=== PATIENT | female | born 1985 | race Caucasian/White ===

== ENCOUNTER 2018-11-30 17:08 | Emergency (ER) | payer OTHER ==
[~2018-11-30] VITALS: Ht 167.6 cm; Wt 68.8 kg
[2018-11-30 17:11] VITALS: BP 138/60; RESP 20; Ht 167.6 cm; Wt 68.8 kg
[2018-11-30] MEDS ORDERED: KETOROLAC 60 MG INJ IM STA (17:51)
[2018-11-30] MEDS ORDERED: ALBUTEROL/IPRATROPIUM (NEB) 3 ML AMP HHN STA (17:51)
[2018-11-30] MEDS ORDERED: ALBUTEROL 0.083% (NEB) 2.5 MG/3 ML AMP HHN STA (17:51)
[2018-11-30] MEDS ORDERED: DEXAMETHASONE 10 MG/ML 1 ML INJ IM ONE (18:00)
[2018-11-30] MEDS ORDERED: DIPHENHYDRAMINE 2.5 MG/ML 5ML CUP PO ONE (18:00)
[2018-11-30] MEDS ORDERED: FLUT16SP17 NASAL (19:40)
[2018-11-30] MEDS ORDERED: CETI10TA34 PO (19:40)
[2018-11-30] MEDS ORDERED: PRED20TA PO (19:40)
[2018-11-30] MEDS ORDERED: NAPR-985 PO (19:40)
[2018-11-30] MEDS ORDERED: ALBU18HF INHALATION (19:40)
[2018-11-30 19:58] VITALS: PULSE 90
--- NOTE | 2018-11-30 20:09 | ERD ---
ER Documentation Chief Complaint Chief Complaint Complains of a couh, colds and flu symptoms x 3 days HPI History of Present Illness: Patient coming in today with complaint of cold-like symptoms for 3 days. Associated symptoms includes headache, nasal congestion, itchy nose, itchy/burning eyes, throat irritation, intermittent nausea. At home pharmacological/nonpharmacological treatment for symptoms: Zyrtec taken yesterday, Claritin taken today Denies social concerns; Denies recent foreign travel ROS All systems reviewed and are negative except as per history of present illness. Medications Home Meds Active Scripts Naproxen* (Naprosyn*) 500 Mg Tablet, 500 MG PO BID PRN for PAIN AND/OR INFLAMMATION, #30 TAB Prov:FRANKY YOON NP 11/30/18 Fluticasone Propionate* (Fluticasone Propionate* Nasal) 50 Mcg/[place] - 16 Gm [place].susp, 1 SPRAY NASAL DAILY for nasal congestion, #1 BOTTLE TO EACH NOSTRIL Prov:FRANKY YOON NP 11/30/18 Prednisone* (Prednisone*) 20 Mg Tab, 40 MG PO DAILY for inflammation for 4 Days, TAB Prov:FRANKY YOON NP 11/30/18 Cetirizine Hcl* (Cetirizine Hcl*) 10 Mg Tab.chew, 10 MG PO DAILY for allergy symptoms/sore throat, #30 TAB Prov:FRANKY YOON NP 11/30/18 Albuterol Sulfate* (Ventolin HFA*) 18 Gm Hfa.aer.ad, 2 PUFF INHALATION Q4H, #1 INHALER Prov:FRANKY YOON NP 11/30/18 PMhx/Soc Medical and Surgical Hx: pt denies Medical Hx, pt denies Surgical Hx Hx Alcohol Use: No Hx Substance Use: No Hx Tobacco Use: No Smoking Status: Never smoker FmHx Family History: No diabetes, No coronary disease Physical Exam Vitals Vital Signs Date Temp Pulse Resp B/P (MAP) Pulse Ox O2 O2 Flow FiO2 Time Delivery Rate 11/30/18 97.1 90 19:58 11/30/18 89 21 96 21 18:10 11/30/18 98.0 100 20 138/60 100 17:11 (86) Physical Exam GENERAL: The patient is well-appearing, well-nourished, in no acute distress HEENT: Atraumatic. Conjunctivae are pink. Pupils equal, round, and reactive to light. There is no scleral icterus. No erythema to tympanic membranes, no bulging, no perforation. Oropharynx clear without tonsillar exudate. Erythema noted to nasal mucosa, turbinates swollen. NECK: Full range of motion. C-spine is soft and supple. There is no meningismus. There is no cervical lymphadenopathy. CHEST: Expiratory wheezing, diminished breath sounds to auscultation bilaterally. There are no rales, wheezes or rhonchi. HEART: Regular rate and rhythm. No murmurs, clicks, rubs or gallops. ABDOMEN: Soft, non tender, non distended. Normal bowel sounds EXTREMITIES: No cyanosis, or edema NEURO: Awake and alert, appropriate for age, no irritable cry Results 24 hrs Laboratory Tests Test 11/30/18 18:08 POC Beta HCG, Qualitative NEGATIVE Current Medications Medications Dose Sig/Otilio Start Time Status Last (Trade) Ordered Route PRN Stop Time Admin Dose Reason Admin Ketorolac 60 mg ONCE STAT 11/30/18 DC 11/30/18 Tromethamine IM 17:51 18:13 (Toradol) 11/30/18 17:54 7 mg ONCE ONCE 11/30/18 DC 11/30/18 Dexamethasone IM 18:00 18:13 (Decadron) 11/30/18 18:01 Albuterol/ 3 ml ONCE STAT 11/30/18 DC 11/30/18 Ipratropium HHN 17:51 18:30 (Duoneb) 11/30/18 17:54 Albuterol 2.5 mg ONCE STAT 11/30/18 DC 11/30/18 (Proventil HHN 17:51 18:31 0.083% (Neb)) 11/30/18 17:54 12.5 mg ONCE ONCE 11/30/18 DC 11/30/18 Diphenhydrami PO 18:00 18:12 ne HCl 11/30/18 18:01 (Benadryl Liquid Cup) Procedures/MDM ED course includes a thorough examination and history. Medications: Albuterol/DuoNeb for wheezing, dexamethasone for wheezing/inflammation/severe nasal congestion, Toradol for headache, diphenhydramine for allergy-like symptoms Imaging: CXR Labs: POC hCG urine, urinalysis Low suspicion for life-threatening medical emergency. Low suspicion for cardiopulmonary emergency that requires hospitalization/intermediate intervention. No signs of infection, afebrile and no systemic signs of infection. Otherwise healthy patient presenting with constellation of symptoms likely representing uncomplicated allergic rhinitis/wheezing as characterized by history, physical exam findings, radiologic findings, lab findings. Urine negative. Radiologist report stating chest x-ray is unremarkable; IMPRESSION: 1. Unremarkable chest x-ray. RPTAT: HMJB No respiratory distress, otherwise relatively well appearing and nontoxic. Reassessment done and patient reports decrease in pain as well as symptoms. Patient educated on diagnoses, prescriptions, follow-up care, return precautions. Strict return precautions given for worsening condition; questions answered discharge. Disposition for discharge with followup in 2 days with PCP/clinic. Departure Diagnosis: Primary Impression: Wheezing Additional Impression: Allergic rhinitis Allergic rhinitis trigger: unspecified Allergic rhinitis seasonality: unspecified Qualified Codes: J30.9 - Allergic rhinitis, unspecified Condition: Stable Patient Instructions: Bronchitis With Wheezing (Adult), Allergic Rhinitis Referrals: [facility] YOU HAVE RECEIVED A MEDICAL SCREENING EXAM AND THE RESULTS INDICATE THAT YOU DO NOT HAVE A CONDITION THAT REQUIRES URGENT TREATMENT IN THE EMERGENCY DEPARTMENT. FURTHER EVALUATION AND TREATMENT OF YOUR CONDITION CAN WAIT UNTIL YOU ARE SEEN IN YOUR DOCTORS OFFICE WITHIN THE NEXT 1-2 DAYS. IT IS YOUR RESPONSIBILITY TO MAKE AN APPOINTMENT FOR FOLOW-UP CARE. IF YOU HAVE A PRIMARY DOCTOR --you should call your primary doctor and schedule an appointment IF YOU DO NOT HAVE A PRIMARY DOCTOR YOU CAN CALL OUR PHYSICIAN REFERRAL HOTLINE AT IF YOU CAN NOT AFFORD TO SEE A PHYSICIAN YOU CAN CHOSE FROM THE FOLLOWING [facility] [address] [facility] [address] [facility] [address] [facility] [address] [facility] [address] [facility] [facility]. [facility]. [address] [facility]. [facility] YOU HAVE RECEIVED A MEDICAL SCREENING EXAM AND THE RESULTS INDICATE THAT YOU DO NOT HAVE A CONDITION THAT REQUIRES URGENT TREATMENT IN THE EMERGENCY DEPARTMENT. FURTHER EVALUATION AND TREATMENT OF YOUR CONDITION CAN WAIT UNTIL YOU ARE SEEN IN YOUR DOCTORS OFFICE WITHIN THE NEXT 1-2 DAYS. IT IS YOUR RESPONSIBILITY TO MAKE AN APPOINTMENT FOR FOLOW-UP CARE. IF YOU HAVE A PRIMARY DOCTOR --you should call your primary doctor and schedule and appointment IF YOU DO NOT HAVE A PRIMARY DOCTOR YOU CAN CALL OUR PHYSICIAN REFERRAL HOTLINE AT . IF YOU CAN NOT AFFORD TO SEE A PHYSICIAN YOU CAN CHOSE FROM THE FOLLOWING [facility] INSTITUTIONS: [facility] [address] [place] [address] [facility] [address] [place] [address] [facility] [address] [place] [address] Additional Instructions: Thank you very much for allowing us to participate in your care. Your health and safety is our top priority at [facility]. It is important to read all discharge instructions and education provided in your discharge packet. Call your primary care doctor TOMORROW for an appointment during the next 2-4 days and bring all the information and medications prescribed. Have prescriptions filled and follow precisely the directions on the label. Prednisone is a steroid that you willing to take for the next 4 days in the morning; this medication will help with inflammation and wheezing. Fluticasone as a nasal spray that includes a steroid; use this every morning to help with nasal congestion, may use up to twice a day. Naproxen is anti-inflammatory pain medication and is for pain/headache/sore throat, take as needed. Cetirizine is an antihistamine as you taking every day even when your symptoms go away; take this medication for itchiness, throat irritation, or other allergy-like symptoms If the symptoms get worse and your provider is unavailable, return to the Emergency Department immediately. FRANKY YOON NP Nov 30, 2018 20:09
== END 2018-11-30 19:58 | disposition home or self-care (01) ==
LOC: FTE 17:08
DX: J30.9 Allergic rhinitis, unspecified (principal)
CPT/HCPCS: 71046; 81025; 94664; 96372; J1100; J1885; Z7502; Z7610

== ENCOUNTER 2018-12-07 05:33 | Day surgery (SDC) | payer OTHER ==
[2018-12-06 14:16] VITALS: Ht 170.2 cm; Wt 72.0 kg
[2018-12-07] VITALS (11 sets, daily range): BP systolic 99–112; BP diastolic 54–69; PULSE 58–90; RESP 12–20
[~2018-12-07] VITALS: Ht 170.2 cm; Wt 72.0 kg
[~2018-12-07 05:33] MED LIST: ALBU18HF INHALATION; CETI10TA34 PO; FLUT16SP17 NASAL; NAPR-985 PO; PRED20TA PO
[2018-12-07] MEDS ORDERED: LIDOCAINE 1% (MPF) 30 ML INJ ONE (06:53)
[2018-12-07] MEDS ORDERED: BUPIVACAINE 0.25%/EPI (SDV) 30 ML INJ ONE (06:53)
[2018-12-07] MEDS ORDERED: SEVOFLURANE 15 MIN ONE (07:00)
--- NOTE | 2018-12-07 07:09 | PREAC ---
Date/Time of Note Date/Time of Note DATE: 12/07/18 TIME: 07:08 Anesthesia Eval and Record Evaluation Time Pre-Procedure Interview DATE: 12/07/18 TIME: 07:08 Age 33 Sex female NPO: 8 hrs Preoperative diagnosis recurrent lipoma, left upper back Planned procedure excision recurrent lipoma, left upper back Past Medical History Past Medical History: None Surgery & Anesthesia Issues No known issue Meds Anticoagulation: No Beta Jerri within 24 hr: No Reason Beta Jerri not given: Pt. not on B-Jerri Discontinued Scripts Naproxen* (Naprosyn*) 500 Mg Tablet, 500 MG PO BID PRN for PAIN AND/OR INFLAMMATION, #30 TAB Prov:FRANKY YOON NP 11/30/18 Fluticasone Propionate* (Fluticasone Propionate* Nasal) 50 Mcg/[place] - 16 Gm [place].susp, 1 SPRAY NASAL DAILY for nasal congestion, #1 BOTTLE TO EACH NOSTRIL Prov:FRANKY YOON NP 11/30/18 Prednisone* (Prednisone*) 20 Mg Tab, 40 MG PO DAILY for inflammation for 4 Days, TAB Prov:FRANKY YOON NP 11/30/18 Cetirizine Hcl* (Cetirizine Hcl*) 10 Mg Tab.chew, 10 MG PO DAILY for allergy symptoms/sore throat, #30 TAB Prov:FRANKY YOON NP 11/30/18 Albuterol Sulfate* (Ventolin HFA*) 18 Gm Hfa.aer.ad, 2 PUFF INHALATION Q4H, #1 INHALER Prov:FRANKY YOON NP 11/30/18 Meds reviewed: Yes Allergies Coded Allergies: No Known Allergy (Unverified , 12/07/18) Allergies Reviewed: Yes Labs/Studies Labs Reviewed: Reviewed by anesthesiologist test: Negative Pre-procedure Exam Last vitals Vital Signs Date Temp Pulse Resp B/P (MAP) Pulse Ox O2 O2 Flow FiO2 Time Delivery Rate 12/07/18 97.9 68 18 99/68 (78) 97 Room Air 06:04 Airway: Adequate mouth opening, Adequate thyromental dist Mallampati: Mallampati II Teeth: Normal Lung: Normal Heart: Normal ASA Physical Status ASA physical status: 1 Emergency: None Planned Anesthetic General/MAC: LMA Planned Pain Management Parenteral pain med Pre-operative Attestations Prior to commencing anesthesia and surgery, the patient was re-evaluated, there was verification of: *The patient's identity *The results of appropriate recent lab work and preoperative vital signs *The above evaluation not changing prior to induction *Anesthetic plan, risk benefits, alternative and complications discussed with patient/family; questions answered; patient/family understands, accepts and wishes to proceed. JALEN JACOBSON MD Dec 07, 2018 07:09
[2018-12-07] MEDS ORDERED: MIDAZOLAM 1 MG/ML 2 ML INJ ONE (07:18)
[2018-12-07] MEDS ORDERED: FENTAnyl 50 MCG/ML VIAL ONE (07:18)
[2018-12-07] MEDS ORDERED: LIDOCAINE 2% (SDV) 5 ML INJ ONE (07:18)
[2018-12-07] MEDS ORDERED: PROPOFOL 20 ML ONE (07:18)
[2018-12-07] MEDS ORDERED: HYDROmorphONE 1 MG/5 ML IV SYRINGE IV PRN ×3 (07:30)
[2018-12-07] MEDS ORDERED: DIPHENHYDRAMINE 50 MG INJ IV PRN (07:30)
[2018-12-07] MEDS ORDERED: OXYCODONE/ACETAMINOPHEN (5/325) TAB PO PRN ×3 (07:30→09:00)
[2018-12-07] MEDS ORDERED: FENTAnyl 50 MCG/ML VIAL IV PRN ×3 (07:30)
[2018-12-07] MEDS ORDERED: MEPERIDINE 25 MG INJ IV PRN (07:30)
[2018-12-07] MEDS ORDERED: PROCHLORPERAZINE 10 MG INJ IV PRN (07:30)
[2018-12-07] MEDS ORDERED: ONDANSETRON 4 MG INJ IV PRN ×2 (07:30→09:00)
--- NOTE | 2018-12-07 07:42 | HPN ---
Date/Time of Note Date/Time of Note DATE: 12/07/18 TIME: 07:41 Interval H&P Admission Note Pt. seen H&P reviewed: No system changes YANCI WATSON MD Dec 07, 2018 07:42
[2018-12-07] MEDS ORDERED: CEFAZOLIN 1 GM INJ ONE (07:57)
[2018-12-07] MEDS ORDERED: ONDANSETRON 4 MG INJ ONE (08:03)
[2018-12-07] MEDS ORDERED: DEXAMETHASONE 4 MG/ML 5 ML INJ ONE (08:03)
[2018-12-07] MEDS ORDERED: PHENYLephrine (100 MCG/ML) 10ML SYG ONE (08:12)
[2018-12-07] MEDS ORDERED: EPHEDrine 25 MG/5 ML SYG ONE (08:17)
--- NOTE | 2018-12-07 08:36 | OPR ---
Date/Time of Note Date/Time of Note DATE: 12/07/18 TIME: 08:33 Operative Report Procedure Date: Dec 07, 2018 Preoperative Diagnosis Recurrent subcutaneous lipoma left shoulder Postoperative Diagnosis 4-1/2 x 4 cm recurrent subcutaneous lipoma left shoulder Operation/Procedure Performed Excision Surgeon Yanci Watson MD Grain Elevator Clerk None Anesthesia Type: general Anesthesiologist: JALEN JACOBSON MD Estimated Blood Loss: minimal Transfusion none Specimen Lipoma Grafts/Implants none Tubes/Drains None Complications none Pt Condition Post Procedure: stable Disposition: PACU Indications Enlarging and symptomatic Procedure Description After satisfactory general anesthesia was achieved the patient was placed in the left lateral decubitus, and the left upper back and shoulder were prepped and draped. A 4-1/2 cm transverse skin incision was made through the previous scar down to subcutaneous tissues. The mass in question was entirely lipomatous and was dissected from surrounding tissues using careful blunt and electrocautery dissection. The specimen was delivered intact and measured 4-1/2 x 4 cm. Hemostasis was completed with electrocautery. The wound was infiltrated with 10 cc 0.25% Marcaine with epinephrine. The subcu was closed with interrupted 3-0 Vicryl, and skin closed with running 3-0 subcuticular Vicryl. Sponge and needle counts were reported as correct x2. YANCI WATSON MD Dec 07, 2018 08:36
--- NOTE | 2018-12-07 08:53 | PAC ---
Date/Time of Note Date/Time of Note DATE: 12/07/18 TIME: 08:52 Post-Anesthesia Notes Post-Anesthesia Note Last documented vital signs Vital Signs Date Temp Pulse Resp B/P (MAP) Pulse Ox O2 O2 Flow FiO2 Time Delivery Rate 12/07/18 97.9 08:45 12/07/18 68 18 99/68 (78) 97 Room Air 06:04 Activity: WNL Respiratory function: WNL Cardiovascular function: WNL Mental status: Baseline Pain reasonably controlled: Yes Hydration appropriate: Yes Nausea/Vomiting absent: Yes Comments BP: 120/75 HR: 98 RR: 15 T: 98 SaO2: 100% JALEN JACOBSON MD Dec 07, 2018 08:53
[2018-12-07] MEDS ORDERED: morphine 2 MG INJ IV PRN (09:00)
== END 2018-12-07 10:35 | disposition home or self-care (01) ==
LOC: SDS 05:33
PROVIDERS: ATTEND Surgery
DX: D17.22 Benign lipomatous neoplasm of skin and subcutaneous tissue of left arm (principal)
CPT/HCPCS: 23071; 88304; J0690; J1100; J2175; J2250; J2370; J2405; J3010; Z7512; Z7610